=== PATIENT | female | born 1970 | race Caucasian/White ===

== ENCOUNTER 2019-02-24 05:45 | Inpatient (IN) | payer OTHER ==
[2019-02-24] MEDS: LACTATED RINGER'S 1,000 ML IV* (06:00)
[2019-02-24] MEDS ORDERED: POLYMYXIN/BACITRACIN 1L IRRIG ×2 (06:50→06:59)
[2019-02-24] MEDS ORDERED: ROCURONIUM 50 MG INJ (07:00)
[2019-02-24] MEDS ORDERED: MIDAZOLAM 1 MG/ML 2 ML INJ (07:33)
[2019-02-24] MEDS: BUPIVACAINE 0.5%/EPI (SDV) 30 ML INJ (07:57)
[2019-02-24] MEDS: CEFAZOLIN 2 GM/50 ML (PMX) 50 ML IVPB (08:00)
[2019-02-24] MEDS: POLYMYXIN/BACITRACIN 1L IRRIG IRR (08:19)
[2019-02-24] MEDS: THROMBIN (BOVINE) 5,000 UNIT VIAL TP (08:20)
[2019-02-24] MEDS ORDERED: FENTAnyl 50 MCG/ML VIAL (09:06)
[2019-02-24] MEDS ORDERED: hydrALAzine 20 MG INJ (09:18)
[2019-02-24] MEDS: HEMOSTATIC MATRIX SYG ZFS (09:28)
[2019-02-24] MEDS ORDERED: morphine 10 MG INJ (09:42)
[2019-02-24] MEDS ORDERED: ONDANSETRON 4 MG INJ (10:17)
[2019-02-24] MEDS ORDERED: METOCLOPRAMIDE 10 MG INJ (10:17)
[2019-02-24] MEDS ORDERED: LIDOCAINE 2% (SDV) 5 ML INJ (10:25)
[2019-02-24] MEDS ORDERED: GLYCOPYRROLATE 0.4 MG INJ (10:25)
[2019-02-24] MEDS ORDERED: NEOSTIGMINE 10 MG INJ (10:25)
[2019-02-24] MEDS ORDERED: PROPOFOL 20 ML (10:25)
[2019-02-24] MEDS ORDERED: CEFAZOLIN 1 GM INJ (10:26)
[2019-02-24] MEDS: GELATIN SIZE 100 SPONGE (10:28)
[2019-02-24] MEDS ORDERED: MEPERIDINE 100 MG INJ (10:49)
[2019-02-24] MEDS ORDERED: NALOXONE (0.4 MG/ML) INJ IV (11:00)
[2019-02-24] MEDS ORDERED: HYDROmorphONE 1 MG/5 ML IV SYRINGE IV ×2 (11:00)
[2019-02-24] MEDS ORDERED: METOCLOPRAMIDE 10 MG INJ IV (11:00)
[2019-02-24] MEDS ORDERED: NACL 0.9% 3 ML SYG IV (11:00)
[2019-02-24] MEDS ORDERED: ONDANSETRON 4 MG INJ IV (11:00)
[2019-02-24] MEDS ORDERED: LABETALOL HCL 20MG INJ IV (11:00)
[2019-02-24] MEDS ORDERED: FENTAnyl 50 MCG/ML VIAL IV (11:00)
[2019-02-24] MEDS ORDERED: DIPHENHYDRAMINE 50 MG INJ IV (11:00)
[2019-02-24] MEDS ORDERED: HYDROCODONE/APAP (5/325) TAB PO (11:00)
[2019-02-24] MEDS ORDERED: MEPERIDINE 25 MG INJ IV (11:00)
[2019-02-24] MEDS: CEFAZOLIN 1 GM/50 ML (PMX) 50 ML IVPB ×3 (12:26→23:46)
[2019-02-24] MEDS: HYDROmorphONE 0.5 MG/0.5 ML SYG IV ×4 (12:26→21:31)
[2019-02-24 14:14] LABS: HEPATITIS B SURFACE ANTIGEN NEGATIVE (NEGATIVE)
[2019-02-24 14:31] LABS: HEPATITIS C VIRAL ANTIBODY NEGATIVE (NEGATIVE); HIV 1&2 ANTIBODY NEGATIVE (NEGATIVE)
[2019-02-24] MEDS: HYDROCODONE/APAP (5/325) TAB PO ×3 (14:34→23:46)
[2019-02-24] MEDS: ONDANSETRON 4 MG INJ IV (16:56)
[2019-02-24] MEDS: ACETAMINOPHEN 325 MG TAB PO (17:03)
[2019-02-24] MEDS: SOD CHLORIDE 0.9% 1,000 ML IV (19:43)
[2019-02-24] MEDS: PROCHLORPERAZINE 10 MG TAB PO (19:48)
[2019-02-25] MEDS: HYDROCODONE/APAP (5/325) TAB PO ×5 (03:51→20:14)
[2019-02-25] MEDS: ONDANSETRON 4 MG INJ IV ×2 (03:51→20:07)
[2019-02-25] MEDS: CEFAZOLIN 1 GM/50 ML (PMX) 50 ML IVPB (05:25)
[2019-02-25] MEDS: HYDROmorphONE 0.5 MG/0.5 ML SYG IV ×7 (05:25→22:05)
[2019-02-25] MEDS: SOD CHLORIDE 0.9% 1,000 ML IV ×2 (05:25→23:24)
[2019-02-25 05:48] LABS: HEMATOCRIT 32.4 % (37.0-47.0); HEMOGLOBIN 11.1 g/dl (12.0-16.0)
[2019-02-25 06:23] LABS: ANION GAP 8 (5-13); BLOOD UREA NITROGEN 11 mg/dl (7-20); CALCIUM 8.2 mg/dl (8.4-10.2); CARBON DIOXIDE 22 mmol/L (21-31); CHLORIDE 110 mmol/L (97-110); CREATININE 0.66 mg/dl (0.44-1.00); Estimated GFR > 60 mL/min (>60); GLUCOSE 98 mg/dl (70-220); POTASSIUM 3.8 mmol/L (3.5-5.1); SODIUM 140 mmol/L (135-144)
[2019-02-25] MEDS: DOCUSATE SODIUM 100 MG CAP PO ×2 (08:03→19:59)
[2019-02-25] MEDS: DEXAMETHASONE 10 MG/ML 1 ML INJ IV (19:59)
[2019-02-26] MEDS: HYDROCODONE/APAP (5/325) TAB PO ×5 (00:16→22:52)
[2019-02-26] MEDS: DEXAMETHASONE 10 MG/ML 1 ML INJ IV (01:38)
[2019-02-26] MEDS: ONDANSETRON 4 MG INJ IV ×2 (01:38→22:40)
[2019-02-26] MEDS: HYDROmorphONE 0.5 MG/0.5 ML SYG IV ×6 (01:38→20:39)
[2019-02-26 05:08] LABS: ADD MAN DIFF? NO
[2019-02-26 05:21] LABS: WHITE BLOOD COUNT 8.9 10^3/ul (4.8-10.8)
[2019-02-26 05:21] LABS: ABNORMAL IP MESSAGE 1; BASOPHILS % 0.1 % (0.0-2.0); HEMATOCRIT 33.8 % (37.0-47.0); HEMOGLOBIN 11.4 g/dl (12.0-16.0); LYMPHOCYTES # 0.6 10^3/ul (0.8-2.9); LYMPHOCYTES % 6.7 % (15.0-51.0); MEAN CORPUSCULAR HGB CONC 33.7 g/dl (32.0-37.0); MEAN PLATELET VOLUME 10.3 fl (7.4-10.4); MONOCYTE # 0.3 10^3/ul (0.3-0.9); MONOCYTES % 2.8 % (0.0-11.0); NEUTROPHILS % 89.9 % (39.0-77.0); PLATELET COUNT 202 10^3/UL (140-415); RED BLOOD COUNT 3.45 10^6/ul (4.20-5.40); RED CELL DISTRIBUTION WIDTH 12.5 % (11.5-14.5)
[2019-02-26 05:35] LABS: ANION GAP 8 (5-13); BLOOD UREA NITROGEN 8 mg/dl (7-20); CALCIUM 9.3 mg/dl (8.4-10.2); CARBON DIOXIDE 23 mmol/L (21-31); CHLORIDE 108 mmol/L (97-110); CREATININE 0.68 mg/dl (0.44-1.00); Estimated GFR > 60 mL/min (>60); GLUCOSE 152 mg/dl (70-220); MAGNESIUM 2.1 mg/dl (1.7-2.5); PHOSPHORUS 3.4 mg/dl (2.5-4.9); POTASSIUM 4.7 mmol/L (3.5-5.1); SODIUM 139 mmol/L (135-144)
[2019-02-26 06:00] LABS: POSITIVE DIFF @See below
[2019-02-26] MEDS: DOCUSATE SODIUM 100 MG CAP PO ×2 (08:07→20:38)
[2019-02-26] MEDS: METHOCARBAMOL 500 MG TAB PO ×2 (14:24→22:40)
[2019-02-26] MEDS: AL HYDROX/MG HYDROX/SIMETH 30 ML CUP PO (20:44)
[2019-02-26] MEDS: ZOLPIDEM 5 MG TAB PO (23:37)
[2019-02-27] MEDS: HYDROmorphONE 0.5 MG/0.5 ML SYG IV ×7 (00:10→22:08)
[2019-02-27] MEDS: HYDROCODONE/APAP (5/325) TAB PO ×2 (05:56→10:41)
[2019-02-27] MEDS: METHOCARBAMOL 500 MG TAB PO ×2 (06:34→14:53)
[2019-02-27] MEDS: DOCUSATE SODIUM 100 MG CAP PO ×2 (08:11→20:27)
[2019-02-27] MEDS ORDERED: OXYCODONE/ACETAMINOPHEN (5/325) TAB PO (12:30)
[2019-02-27] MEDS: PANTOPRAZOLE (EC) 40 MG TAB PO (14:53)
[2019-02-27] MEDS: OXYCODONE/ACETAMINOPHEN (5/325) TAB PO ×2 (16:22→20:30)
[2019-02-27] MEDS: AL HYDROX/MG HYDROX/SIMETH 30 ML CUP PO (17:48)
[2019-02-27] MEDS: ONDANSETRON 4 MG INJ IV (20:53)
[2019-02-27] MEDS: ZOLPIDEM 5 MG TAB PO (22:09)
[2019-02-28] MEDS: PANTOPRAZOLE (EC) 40 MG TAB PO (05:36)
[2019-02-28] MEDS: HYDROmorphONE 0.5 MG/0.5 ML SYG IV ×2 (05:36→10:24)
[2019-02-28] MEDS: METHOCARBAMOL 500 MG TAB PO (08:58)
[2019-02-28] MEDS: DOCUSATE SODIUM 100 MG CAP PO (08:58)
[2019-02-28] MEDS: OXYCODONE/ACETAMINOPHEN (5/325) TAB PO ×2 (09:00→13:20)
[2019-02-28] MEDS: AL HYDROX/MG HYDROX/SIMETH 30 ML CUP PO (14:30)
== END 2019-02-28 14:51 | disposition home or self-care (01) | DRG 520 ==
LOC: REC 05:45 → MS1 12:03
PROVIDERS: Orthopaedic Surgery
PROC: 0SB20ZZ Excision of Lumbar Vertebral Disc, Open Approach (ICD-10-PCS; principal; 2019-02-24 07:29)
PROC: 01NB0ZZ Release Lumbar Nerve, Open Approach (ICD-10-PCS; 2019-02-24 07:29)
DX: M48.062 Spinal stenosis, lumbar region with neurogenic claudication (principal); M51.16 Intervertebral disc disorders with radiculopathy, lumbar region; Z98.1 Arthrodesis status; G89.29 Other chronic pain; Z90.710 Acquired absence of both cervix and uterus; Z87.891 Personal history of nicotine dependence; R35.0 Frequency of micturition
CPT/HCPCS: 72110; 72158; 80048; 83735; 84100; 85014; 85018; 85025; 86703; 86803; 86900; 86901; 87340; 88304; 97110; 97116; 97162; 97530